=== PATIENT | female | born 1970 | race Caucasian/White ===

== ENCOUNTER 2016-10-29 17:22 | Emergency (ER) | payer BC ==
[~2016-10-29] VITALS: Ht 177.8 cm; Wt 117.0 kg
[~2016-10-29 17:22] MED LIST: AZITTAB PO; HUMIRA; MULT-506 PO; OXYC7.5T78 PO; [UNRECOGNIZED DRUG - CODE]
[2016-10-29 17:29] VITALS: Ht 177.8 cm; Wt 117.0 kg
[2016-10-29 17:46] LABS: URINE APPEARANCE CLEAR (CLEAR); URINE BILIRUBIN NEG (NEG); URINE COLOR YELLOW; URINE EPITHELIAL CELL AUTO >30 /lpf (0-5); URINE NITRITE NEG (NEG); URINE SPECIFIC GRAVITY 1.019 (1.000-1.030); UROBILINOGEN NEG (NEG); ZZUR CULT IF INDIC CLEAN CATCH NO
[2016-10-29 17:49] LABS: MANUAL MICROSCOPIC REQUIRED? NO; REVIEW REQ? NO
[2016-10-29] MEDS ORDERED: KETOROLAC TROMETHAMINE 30 MG/ML VIAL IV STA (17:54)
[2016-10-29] MEDS ORDERED: ONDANSETRON 8 MG/54 ML D5W IV STA (17:54)
[2016-10-29 18:04] LABS: BASO % 0.3 %; BASO ABS # 0.03 K/uL (0-0.2); COMPLETE YES; EOS % 3.6 %; HEMATOCRIT 37.7 % (37-47); IG% 0.1 %; LYMPH % 22.4 %; LYMPH ABS # 1.98 K/uL (1.2-3.4); MEAN CELL VOLUME 87.7 fL (80-100); MEAN CORPUSCULAR HEMOGLOBIN 31.6 pg (25-34); MEAN CORPUSCULAR HGB CONC 36.1 g/dl (32-36); MEAN PLATELET VOLUME 9.1 fL (7.4-10.4); NEUT % 66.6 %; PLATELET COUNT 168 K/uL (130-400); WHITE BLOOD COUNT 8.83 K/uL (4.8-10.8)
[2016-10-29] MEDS: HYDROmorphone INJ 1 MG/ML SYR IV PRN ×3 (18:11→21:26)
[2016-10-29 18:17] LABS: BUN/CREATININE RATIO 13.4 (10-20); CALCIUM 8.9 mg/dl (8.5-10.1); CREATININE 1.1 mg/dl (0.60-1.20); POTASSIUM 3.7 mmol/L (3.5-5.1)
[2016-10-29 18:21] LABS: PREG INTERNAL NEGATIVE QC NEG CLEAR BACKGROUND; PREG INTERNAL POSITIVE QC POS CONTROL LINE
[2016-10-29] MEDS ORDERED: ADAL40KI SC (18:34)
--- NOTE | 2016-10-29 18:37 | DIAGNOSTIC IMAGING REPORT ---
CT OF THE ABDOMEN AND PELVIS WITHOUT CONTRAST, STONE PROTOCOL CLINICAL HISTORY: Right flank pain, nausea and vomiting. COMPARISON STUDY: None. TECHNIQUE: Helical axial images of the abdomen and pelvis were obtained without IV or oral contrast according to renal stone protocol. FINDINGS: A 3 mm distal right ureteral calculus results in moderate right hydroureteronephrosis. There is a 6 mm calculus within lower pole of the right kidney. There is mild right periureteral/perinephric infiltration. There is fatty infiltration of the liver. Mild dilatation of the common bile duct is likely related to prior cholecystectomy. There is mild to moderate splenomegaly. There is no evidence for a bowel obstruction. The appendix is normal. There is no lymphadenopathy. Skeletal structures are unremarkable. IMPRESSION: 1. 3 mm distal right ureteral calculus with resultant moderate right hydroureteronephrosis. 2. 6 mm right renal calculus. 3. Fatty liver. 4. Mild to moderate splenomegaly. Electronically signed by: Ilia Lobato M.D. 10/29/2016 6:35 PM Dictated Date/Time: 10/29/2016 6:31 PM
[2016-10-29] MEDS ORDERED: GI COCKTAIL PO STA (19:04)
[2016-10-29] MEDS ORDERED: LIDOCAINE HCL 2% VISC SOLN 20 ML UDC ONE (19:13)
[2016-10-29] MEDS ORDERED: ALUMINUM/MAGNESIUM SUSP 30 ML UDC ONE (19:13)
[2016-10-29] MEDS ORDERED: DiphenhydrAMINE HCL 50 MG/ML VIAL IV STA (19:44)
[2016-10-29] MEDS ORDERED: METOCLOPRAMIDE HCL INJ 5 MG/ML 2 ML VIAL IV STA (19:44)
[2016-10-29] MEDS ORDERED: OXYCODONE IR HOME PACK PO ONE (21:15)
[2016-10-29] MEDS ORDERED: PHENERGAN 25MG HOMEPACK PO ONE (21:15)
[2016-10-29] MEDS ORDERED: OXYC1TAB3 PO (21:23)
[2016-10-29] MEDS ORDERED: PROM25TA9 PO (21:23)
[2016-10-29 21:30] VITALS: BP 124/77; PULSE 63; TEMP 36.7; O2SAT 96
--- NOTE | 2016-10-30 01:06 | EMERGENCY ROOM VISIT NOTE ---
History Report prepared by Andreas: Mary Vann Under the Supervision of: Dr. Ld Lepe M.D. First contact with patient: 17:40 Chief Complaint: FLANK PAIN Stated Complaint: RIGHT FLANK PAIN AND BACK PAIN History of Present Illness The patient is a 46 year old female who presents to the Emergency Room with complaints of waxing and waning right flank pain that began about 2 hours ago. The pain radiates through her left lower quadrant. She had a bloating sensation as if she had to have a bowel movement or urinate and then developed the pain. She also complains of nausea and one episode of vomiting. Since her pain began, she has had urinary frequency. Prior to her symptoms starting, she had two bowel movements today and was urinating normally. She has never had similar symptoms in the past. Currently, her pain is slightly improved compared to when it started. There is no personal or family history of kidney stones. Pt denies LOC, headache, fevers, chills, diaphoresis, visual changes, neck pain, chest pain, breathing difficulties, abdominal pain, back pain, melena, hematochezia, numbness, weakness, hematuria, lymphadenopathy, rash, or other complaints. Source of History: patient Onset: 2 hours ago Position: other (right flank) Timing: waxes/wanes Associated Symptoms: + nausea, + urinary symptoms (frequency), + vomiting Review of Systems See HPI for pertinent positives and negatives. A total of ten systems were reviewed and were otherwise negative. Past Medical & Surgical Surgical Problems: (1) S/P cholecystectomy Family History No pertinent family history stated. Social History Smoking Status: Never Smoker Marital Status: Housing Status: lives with family Occupation Status: employed Current/Historical Medications Scheduled Adalimumab (Humira Pen), 20 MG SC TWICE MONTHLY Multivitamin (Multivitamin), 1 TAB PO DAILY Scheduled PRN Oxycodone Ir (Roxicodone Ir), 1-2 TAB PO Q4H PRN for Pain Promethazine Hcl (Phenergan), 25 MG PO Q6H PRN for Nausea Allergies Coded Allergies: Cetirizine (Verified Allergy, Intermediate, BRADYCARDIA, 10/29/16) Penicillins (Verified Allergy, Intermediate, RASH, 10/29/16) Sulfa Drugs (Verified Allergy, Intermediate, RASH, 10/29/16) Physical Exam Vital Signs Date Time Temp Pulse Resp B/P Pulse Ox O2 Delivery O2 Flow Rate FiO2 10/29/16 21:30 36.7 63 14 124/77 96 10/29/16 21:30 63 14 124/77 96 Room Air 10/29/16 21:00 68 14 130/78 96 Room Air 10/29/16 17:29 36.7 71 20 183/101 96 Room Air Physical Exam GENERAL: Awake, alert, very uncomfortable-appearing, in no distress HENT: Normocephalic, atraumatic. Oropharynx unremarkable. EYES: Normal conjunctiva. Sclera non-icteric. NECK: Supple. No nuchal rigidity. FROM. No JVD. RESPIRATORY: Clear to auscultation. CARDIAC: Regular rate, normal rhythm. Extremities warm and well perfused. Pulses equal. ABDOMEN: Soft, non-distended. No tenderness to palpation. No rebound or guarding. No masses. RECTAL: Deferred. MUSCULOSKELETAL: Chest examination reveals no tenderness. The back is symmetrical on inspection without obvious abnormality. Right CVA tenderness to palpation. No joint edema. LOWER EXTREMITIES: Calves are equal size bilaterally and non-tender. No edema. No discoloration. NEURO: Normal sensorium. No sensory or motor deficits noted. SKIN: No rash or jaundice noted. Medical Decision & Procedures ER Provider Diagnostic Interpretation: Radiology results as stated below per my review and radiologist interpretation CT OF THE ABDOMEN AND PELVIS WITHOUT CONTRAST, STONE PROTOCOL CLINICAL HISTORY: Right flank pain, nausea and vomiting. COMPARISON STUDY: None. TECHNIQUE: Helical axial images of the abdomen and pelvis were obtained without IV or oral contrast according to renal stone protocol. FINDINGS: A 3 mm distal right ureteral calculus results in moderate right hydroureteronephrosis. There is a 6 mm calculus within lower pole of the right kidney. There is mild right periureteral/perinephric infiltration. There is fatty infiltration of the liver. Mild dilatation of the common bile duct is likely related to prior cholecystectomy. There is mild to moderate splenomegaly. There is no evidence for a bowel obstruction. The appendix is normal. There is no lymphadenopathy. Skeletal structures are unremarkable. IMPRESSION: 1. 3 mm distal right ureteral calculus with resultant moderate right hydroureteronephrosis. 2. 6 mm right renal calculus. 3. Fatty liver. 4. Mild to moderate splenomegaly. Electronically signed by: Ilia Lobato M.D. 10/29/2016 6:35 PM Dictated Date/Time: 10/29/2016 6:31 PM Laboratory Results 10/29/16 17:45 Red Blood Count 4.30, Mean Corpuscular Volume 87.7, Mean Corpuscular Hemoglobin 31.6, Mean Corpuscular Hemoglobin Concent 36.1, Mean Platelet Volume 9.1, Neutrophils (%) (Auto) 66.6, Lymphocytes (%) (Auto) 22.4, Monocytes (%) (Auto) 7.0, Eosinophils (%) (Auto) 3.6, Basophils (%) (Auto) 0.3, Neutrophils # (Auto) 5.87, Lymphocytes # (Auto) 1.98, Monocytes # (Auto) 0.62, Eosinophils # (Auto) 0.32, Basophils # (Auto) 0.03 10/29/16 17:45 Test 10/29/16 17:35 10/29/16 17:45 Urine Color YELLOW Urine Appearance CLEAR (CLEAR) Urine pH 6.0 (4.5-7.5) Urine Specific [place] 1.019 (1.000-1.030) Urine Protein NEG (NEG) Urine Glucose (UA) NEG (NEG) Urine Ketones NEG (NEG) Urine Occult Blood 1+ (NEG) Urine Nitrite NEG (NEG) Urine Bilirubin NEG (NEG) Urine Urobilinogen NEG (NEG) Urine Leukocyte Esterase MODERATE (NEG) Urine WBC (Auto) 5-10 /hpf (0-5) Urine RBC (Auto) 10-30 /hpf (0-4) Urine Hyaline Casts (Auto) 1-5 /lpf (0-5) Urine Epithelial Cells (Auto) >30 /lpf (0-5) Urine Bacteria (Auto) NEG (NEG) Urine Test NEG (NEG) White Blood Count 8.83 K/uL (4.8-10.8) Red Blood Count 4.30 M/uL (4.2-5.4) Hemoglobin 13.6 g/dL (12.0-16.0) Hematocrit 37.7 % (37-47) Mean Corpuscular Volume 87.7 fL (80-100) Mean Corpuscular Hemoglobin 31.6 pg (25-34) Mean Corpuscular Hemoglobin Concent 36.1 g/dl (32-36) Platelet Count 168 K/uL (130-400) Mean Platelet Volume 9.1 fL (7.4-10.4) Neutrophils (%) (Auto) 66.6 % Lymphocytes (%) (Auto) 22.4 % Monocytes (%) (Auto) 7.0 % Eosinophils (%) (Auto) 3.6 % Basophils (%) (Auto) 0.3 % Neutrophils # (Auto) 5.87 K/uL (1.4-6.5) Lymphocytes # (Auto) 1.98 K/uL (1.2-3.4) Monocytes # (Auto) 0.62 K/uL (0.11-0.59) Eosinophils # (Auto) 0.32 K/uL (0-0.5) Basophils # (Auto) 0.03 K/uL (0-0.2) RDW Standard Deviation 42.7 fL (36.4-46.3) RDW Coefficient of Variation 13.5 % (11.5-14.5) Immature Granulocyte % (Auto) 0.1 % Immature Granulocyte # (Auto) 0.01 K/uL (0.00-0.02) Anion Gap 8.0 mmol/L (3-11) Est Creatinine Clear Calc Drug Dose 87.7 ml/min Estimated GFR () 69.2 Estimated GFR (Non- 59.7 BUN/Creatinine Ratio 13.4 (10-20) Calcium Level 8.9 mg/dl (8.5-10.1) Total Bilirubin 1.3 mg/dl (0.2-1) Direct Bilirubin 0.3 mg/dl (0-0.2) Aspartate Amino Transf (AST/SGOT) 22 U/L (15-37) Alanine Aminotransferase (ALT/SGPT) 53 U/L (12-78) Alkaline Phosphatase 65 U/L (45-117) Total Protein 7.4 gm/dl (6.4-8.2) Albumin 4.1 gm/dl (3.4-5.0) Lipase 176 U/L (73-393) Laboratory results reviewed by me Medications Administered Medications (Trade) Dose Ordered Sig/Elke Route Start Time Stop Time Status Last Admin Dose Admin Ketorolac Tromethamine (Toradol Inj) 10 mg NOW STAT IV 10/29/16 17:54 10/29/16 17:56 DC 10/29/16 18:10 10 MG Hydromorphone HCl (Dilaudid Inj) 1 mg Q15M PRN IV 10/29/16 18:00 10/29/16 22:22 DC 10/29/16 21:26 1 MG Ondansetron HCl (Zofran 8mg Iv) 8 mg NOW STAT IV 10/29/16 17:54 10/29/16 17:56 DC 10/29/16 18:10 8 MG Al Hydroxide/Mg Hydroxide (Maalox Susp) 30 ml STK-MED ONCE .ROUTE 10/29/16 19:13 10/29/16 19:14 DC 10/29/16 19:09 30 ML Lidocaine HCl (Viscous Lidocaine 2% Soln) 20 ml STK-MED ONCE .ROUTE 10/29/16 19:13 10/29/16 19:14 DC 10/29/16 19:10 20 ML Metoclopramide HCl (Reglan Inj) 10 mg NOW STAT IV 10/29/16 19:44 10/29/16 19:46 DC 10/29/16 19:51 10 MG Diphenhydramine HCl (Benadryl Inj) 12.5 mg NOW STAT IV 10/29/16 19:44 10/29/16 19:46 DC 10/29/16 19:59 12.5 MG Oxycodone HCl (Roxicodone Immediate Rel 5MG Home Pack) 1 homepack UD ONCE PO 10/29/16 21:15 10/29/16 21:16 DC 10/29/16 21:20 1 HOMEPACK Promethazine HCl (Phenergan 25MG Home Pack) 1 homepack UD ONCE PO 10/29/16 21:15 10/29/16 21:16 DC 10/29/16 21:20 1 HOMEPACK ED Course 1752: The patient was evaluated in room B12. A complete history and physical exam was performed. 1753: Ondansetron HCl 8 mg IV, Toradol Inj 10 mg IV. 1800: Ordered Dilaudid Inj 1 mg IV. 1856: I reassessed the patient and updated her on results. She was still in pain and had an upset stomach. She will receive another dose of Dilaudid and a GI cocktail. 1903: Ordered GI Cocktail 24 ml PO. 1938: I reassessed the patient. She was nauseated. 1943: Ordered Benadryl Inj 12.5 mg IV, Reglan Inj 10 mg IV. 1957: I reassessed the patient. 2099: I reevaluated the patient. Discussed results and discharge instructions: She verbalized understanding and agreement. The patient is ready for discharge. 2114: Ordered Promethazine HCl 1 homepack PO, Oxycodone HCL 1 homepack PO. Medical Decision Triage Nursing notes reviewed. The patient's presentation and history were concerning for flank pain. Etiologies such as renal colic, appendicitis, diverticulitis, mesenteric ischemia, aortic pathology, infections, inflammatory bowel disease, PUD, biliary pathology, UTI, as well as others were entertained. The patient was evaluated. She was uncomfortable. She was given Toradol, Zofran, and Dilaudid. On reassessment she was feeling somewhat better. Her nausea and then increased. She was given a GI cocktail as well as Reglan and Benadryl. She received a second dose of IV Dilaudid. On reassessment again she was doing much better. The patient had an unremarkable CBC. Her LFTs were unremarkable as well. Urinalysis revealed hematuria. CT imaging revealed a right-sided ureteral stone. The patient will be referred to urology. She'll be prescribed Phenergan and oxycodone. By the evaluation outlined above other emergent etiologies such as those listed in the differential, as well as others, were deemed relatively unlikely. The patient was informed about the findings as listed above. All questions were answered and she was pleased with the treatment. Return instructions were outlined and the patient was discharged in stable condition. The patient was referred to [facility] urology for follow-up for a recheck of the current condition. The chart was completed utilizing [employer] Speech voice recognition software. Grammatical errors, random word insertions, pronoun errors, and incomplete sentences are an occasional consequence of this system due to software limitations, ambient noise, and hardware issues. Any formal questions or concerns about the content, text, or information contained within the body of this dictation should be directly addressed to the physician for clarification. Impression Primary Impression: Kidney stone Scribe Attestation The scribe's documentation has been prepared under my direction and personally reviewed by me in its entirety. I confirm that the note above accurately reflects all work, treatment, procedures, and medical decision making performed by me. Departure Information Dispostion Home / Self-Care Prescriptions Promethazine Hcl (Phenergan) 25 Mg Tab 25 MG PO Q6H Y for Nausea, #10 TAB Prov: Ld Lepe MD 10/29/16 Oxycodone Ir (Roxicodone Ir) 5 Mg Tab 1-2 TAB PO Q4H Y for Pain, #15 TAB Prov: Ld Lepe MD 10/29/16 Referrals Kaity Taveras D.O. (PCP) Patient Instructions My [facility] Additional Instructions KIDNEY STONE INSTRUCTIONS: Oxycodone Immediate Release (OxyIR) 5mg: Take 1-2 pills every four hours for pain. Avoid alcohol, operating machinery or dangerous equipment, working on ladders or roofs, DRIVING, or situations where being under the influence may be dangerous. It is recommended to use an [id number] stool softener such as Colace, 100mg twice daily while taking this medication to avoid constipation. Phenergan 25mg: Take one every six hours as needed for nausea. Avoid alcohol, operating machinery or dangerous equipment, working on ladders or roofs, DRIVING , or situations where being under the influence may be dangerous. Ibuprofen(Motrin, Advil) may be used for fever or pain. Use 600mg every six hours as needed. Take with food. Avoid using more than 2400mg in a 24 hour period. Do not use 2400mg per day for more than three consecutive days without physician direction. Prolonged inappropriate use can lead to stomach upset or ulcers. This medication can be taken if you need to drive, work, or perform activities which may be dangerous when taking narcotic pain medication. (AND/OR) Acetaminophen(Tylenol) may be used for fever or pain. Use 1000mg every six hours as needed. Avoid using more than 4000mg in a 24 hour period. This medication can be taken if you need to drive, work, or perform activities which may be dangerous when taking narcotic pain medication. Strain your urine and collect all the stones or debris for the urologists. Rest and avoid strenuous activity until your stone passes and symptoms resolve. Drink plenty of fluids. Return to the ER for worsening abdominal or back pain, vomiting, fevers, passing out, or as needed. Follow up with [facility] tomorrow, [phone], to arrange a visit.
== END 2016-10-29 21:30 | disposition home or self-care (01) ==
LOC: C.EDB 17:24
DX: N20.0 Calculus of kidney (principal); Z90.49 Acquired absence of other specified parts of digestive tract

== ENCOUNTER → 2016-12-08 | Outpatient (CLI) | payer BC ==
[~2016-12-08] MED LIST changes: +ADAL40KI SC; -AZITTAB PO; -HUMIRA; +OXYC1TAB3 PO; -OXYC7.5T78 PO; +PROM25TA9 PO; -[UNRECOGNIZED DRUG - CODE]
--- NOTE | 2016-12-08 10:31 | DIAGNOSTIC IMAGING REPORT ---
RIGHT KNEE MRI HISTORY: R KNEE PAIN, R/O MENISCUS TEAR Right COMPARISON STUDY: None. TECHNIQUE: Multiplanar multisequence MRI of the right knee was performed according to standard department protocol without the use of contrast. FINDINGS: Menisci: There is a horizontal tear involving the body and anterior horn of the lateral meniscus. The medial meniscus is intact. Ligaments: The anterior and posterior cruciate ligaments are intact. The medial and lateral collateral ligaments are normal in appearance. Extensor mechanism: The quadriceps tendon and patellar ligament are intact. Articular cartilage and bone: No fracture or dislocation. Heterogeneous marrow pattern. Focal small subchondral cystic change and subchondral edema at the mid patella. There is overlying near full-thickness cartilage loss at the median ridge of the patella. The medial and lateral patellar facets demonstrate mild cartilage thinning. The remaining cartilage spaces are maintained for age. Joint effusion: None. Soft tissues: Intact. IMPRESSION: 1. Horizontal tear involving the body and anterior horn of the lateral meniscus. 2. Mild patellar chondromalacia. Electronically signed by: Jax Stone M.D. 12/08/2016 10:30 AM Dictated Date/Time: 12/08/2016 10:26 AM
== END | disposition home or self-care (01) ==
LOC: C.MRIBC 09:25
PROVIDERS: ATTEND Orthopaedic Surgery
DX: M25.561 Pain in right knee (principal); S83.281A Other tear of lateral meniscus, current injury, right knee, initial encounter; X58.XXXA Exposure to other specified factors, initial encounter